=== PATIENT | female | born 1975 | race Caucasian/White ===

== ENCOUNTER 2016-12-01 18:51 | Emergency (ER) | payer OTHER ==
[~2016-12-01] VITALS: Ht 162.6 cm; Wt 72.7 kg
[~2016-12-01 18:51] MED LIST: NOMED
[2016-12-01 19:10] VITALS: BP 117/79; PULSE 75; RESP 16; O2SAT 98
[2016-12-01] MEDS ORDERED: Ondansetron 2 mg/mL 2 mL Inj IVPUSH ONE (19:40)
[2016-12-01] MEDS ORDERED: 0.9% Sodium Chloride 1,000 ML IV ONE (19:45)
[2016-12-01] MEDS ORDERED: Clindamycin Inj 900 MG in IV Premix 1 EACH IV ONE (19:45)
--- NOTE | 2016-12-01 19:47 | ED.REPORT ---
HPI-Dental/Mouth Prob Date of Service December 01, 2016 ED Provider: Doc,Ed MD History of Present Illness: 41-year-old female who had dental work done on Fridays presents today with increased cheek throat and ear pain. On Friday she had no pain. today, early this morning, she started having increased symptoms. No fever but she is acutely nauseous. She cannot open her mouth. Her right cheek is the worst. It does not hurt her teeth were removed. She had 1 upper and one lower molar on the right side removed. She is able to eat and drink but she is nauseous now Nursing Notes Stated Complaint: SWOLLEN FACE TOOTH EXTRACTION Chief Complaint: Dental Nursing Notes Reviewed: Yes Allergies: Coded Allergies: codeine (Verified Allergy, Severe, N/V, 11/16/09) Miscellaneous Medications No Historical Medication (No Historical Medication) Ea General Time Seen by MD: 19:30 Chief Complaint Jaw swelling, Mouth pain, Other Hx Obtained From: Patient Arrived By: Walk-in Onset Occurred: 5 - 8 hours ago Symptom Duration: Constant Location: : Buccal mucosa right: Gum mandible right: Temporomandibular jt R Severity: Current: Severe Severity: Maximum: Severe Recent Healthcare: Previous surgery Similar Sx Previous: No Past Medical History Past Medical History denies Review of Systems Basic Review of Systems Eyes: Vision NL, No discharge Cardiovascular: No chest pain, No dyspnea on exertion, No orthopnea, No parox noct dyspnea, No palpitations Skin: No bruising, No rash, No itch Neurologic: NL mental status, No weakness, No numbness Psychiatric: Normal thought content Constitutional: Reports: Fever, Denies: Chills, Fatigue Ears / Nose / Throat: Reports: Earache right, Mouth pain, Throat pain, Throat swelling, Denies: Ear drainage bilateral, Ear ringing bilateral, Hearing loss bilateral Respiratory: Denies: Dyspnea on exertion GI: Reports: Nausea, Denies: Abdominal pain Complete sys rev & neg: except as marked. Physical Exam Initial Vital Signs Vital Signs (First) Date Time Temp Pulse Resp B/P Pulse Ox O2 Delivery O2 Flow Rate FiO2 12/01/16 19:10 36.8 75 16 117/79 98 Room Air Initial VS: Reviewed, Vital signs normal General/Constitutional: Well-developed, Well-nourished Head / Eyes: Atraumatic, Normocephalic, PERRL Respiratory: Breath sounds normal, Clear to auscultation, No respiratory distress Cardiovascular: Regular rate & rhythm, Heart sounds normal, Intact distal pulses Abdomen / GI: Soft, Non-tender, No guarding, No rebound, No distention Skin: Warm, Dry, No cyanosis Neurologic: Alert, Oriented, Nonfocal Psychiatric: Mood/affect normal, Behavior normal, Normal thought content ENT: Atraumatic, Airway patent, Mucous membranes moist, No pooling of secretions, Tympanic membs NL, Ext aud canal NL, Mastoid area NL, Nose exam NL, No facial swelling, Gums/dentition NL swelling noted to R face. PT cannot open jaw more than a few mm. quarter size lump palpated in R cheek, very tender. Tender to R jaw, R mandible, R lymphnodes, Tender R maxillary sinus difficulty visualizing teeth removal sites but no obvious erythema/swelling along gums or buccal mucosa. Neck: Supple, No meningismus, Full range of motion, No adenopathy, No swelling , No masses tender anterior neck Right side General/Constitutional: Awake, Alert, Well appearing Distress / Hydration: Positive: Distress mild Head / Eyes: Normocephalic, PERRL Respiratory / Chest: Breath sounds NL, Breath sounds = bilat, No respiratory distress, No rales, No rhonchi, No wheezing, No stridor Cardiovascular: Heart rate NL, Regular rhythm, Heart sounds NL, No murmurs, Peripheral circulation NL Abdomen: Atraumatic, Soft, Non-tender Interpretation & Diagnostics Lab Results Interpretation Result Diagram: 12/01/16195112/01/161951 Test 12/01/16 19:52 White Blood Count 5.4th/mm3 (3.8-10.1) Red Blood Count 4.56mil/mm3 (3.90-5.20) Hemoglobin 14.1g/dL (12.0-15.6) Hematocrit 41.8% (35.0-46.0) Mean Corpuscular Volume 91.7fL (81-100) Mean Corpuscular Hemoglobin 30.9pg (27.0-35.0) Mean Corpuscular Hemoglobin Concent 33.7% (32.0-37.0) Red Cell Distribution Width 12.5% (12.3-15.4) Platelet Count 238bil/L (150-400) Neutrophils (%) (Auto) 52.9% (40-74) Lymphocytes (%) (Auto) 33.4% (14-46) Monocytes (%) (Auto) 8.8% (4-12) Eosinophils (%) (Auto) 4.1% (0-5) Basophils (%) (Auto) 0.4% (0-3) Sodium Level 139mEq/L (134-144) Potassium Level 3.8mEq/L (3.5-5.2) Chloride Level 104mEq/L (97-108) Carbon Dioxide Level 20mmol/L (18-29) Blood Urea Nitrogen 8mg/dL (6-24) Creatinine 0.63mg/dL (0.57-1.00) Estimat Glomerular Filtration Rate 149mL/min (>59) Glucose Level 89mg/dL (60-99) Calcium Level 9.4mg/dL (8.5-10.1) Total Bilirubin 0.6mg/dL (0.0-1.2) Aspartate Amino Transf (AST/SGOT) 51U/L (0-50) Alanine Aminotransferase (ALT/SGPT) 72U/L (0-32) Alkaline Phosphatase 51U/L (25-150) Total Protein 7.5g/dL (6.4-8.4) Albumin 4.3g/dL (3.4-5.0) Re-Eval/Medical Decision Med Decision/Clinical Course pt requsting pain meds, toradol not effective. dilaudid and morphine both make her itchy, asks for benadryl with it. [address] report [address] Wells Discharge & Departure Shift Change Sign-Out Laboratory Evaluation: Lab evaluation discussed Imaging Studies: Imaging discussed Response to Therapy: Improved Primary Impression: Dental abscess Disposition: Home Discharge Condition All VS Reviewed: Yes Condition: Stable Patient Instructions: Dental Abscess (ED) Additional Instructions: Take antibiotics as prescribed. Referrals: Mavis Vides V. (Vivien) (PCP) Mariah Dawkins December 01, 2016 19:47
[2016-12-01 20:08] LABS: BASOPHILS % (AUTO) 0.4 % (0-3); EOSINOPHILS % (AUTO) 4.1 % (0-5); MONOCYTES % (AUTO) 8.8 % (4-12); Mean Corpuscular Hemoglobin 30.9 pg (27.0-35.0); Mean Corpuscular Volume 91.7 fL (81-100); NEUTROPHILS % (AUTO) 52.9 % (40-74); Platelet Count 238 bil/L (150-400)
[2016-12-01] MEDS ORDERED: HYDROmorphone 1 mg/mL Inj IVPUSH ONE (20:45)
[2016-12-01] MEDS ORDERED: Dexamethasone Inj 20 MG in 0.9% Sodium Chloride-Pha MIX 50 ML IV ONE (21:30)
--- NOTE | 2016-12-01 22:13 | DRSVH ---
PROCEDURE: CT NECK SOFT TISSUES WITH CONTRAST ([id number]) INDICATIONS: dental infection, TECHNIQUE: After the administration of intravenous contrast, 3.0 mm axial sections acquired from the sella to th e aortic arch. Additional oblique axial 3.0 mm sections acquired through the pharynx. 3 mm thick co roscoe reformats were generated. For radiation dose reduction, the following was used: automated exp osure control. COMPARISON: None. FINDINGS: Image quality: There is extensive metallic streak artifact from patient's dental hardware.. Lymph nodes: No cervical lymphadenopathy by size criteria. Vessels: Visualized vasculature appears patent. Neck spaces: There is soft tissue fullness in the base of tongue and floor of mouth bilaterally with foci of soft tissue gas. There is enlargement of the tonsils bilaterally with concentric mucosal th ickening in the oropharynx which demonstrates moderate narrowing. The vocal cords, false vocal cords , pyriform sinuses, epiglottis, and vallecula appear within normal limits. Glands: The parotid and submandibular glands appear normal. Thyroid gland demonstrates no discrete nodules. Miscellaneous: Visualized brain and orbits appear normal. Lung apices appear clear. Superficial so ft tissues appear normal. Bones: There is an intraosseous abscess in the right maxilla at the root of the right 2nd molar with associated bony erosion. There is suggestion of abscess extension into the adjacent soft tissues, m easuring up to approximately 1.6 x 1.0 cm in aggregate dimension. The visualized sinuses demonstrate mild mucosal thickening in the maxillary sinuses inferiorly. IMPRESSION: 1. Intraosseous abscess in the right maxilla centered at the root of the 2nd molar with associated b yves erosion. 2. Soft tissue edema also demonstrated at the base of tongue and floor of mouth with foci of soft ti ssue gas which may represent sequelae of a gas-forming organism infection or gas within small veins s econdary to sequelae of injection. 3. Enlargement of the tonsils and mucosal thickening in the oropharynx with associated moderate narr owing. Dictated by: Cali Foster M.D. on 12/01/2016 at 21:57 Approved by: Cali Foster M.D. on 12/01/2016 at 22:06
[2016-12-01 23:29] VITALS: BP 91/54; PULSE 59; RESP 16; O2SAT 100
[2016-12-02] MEDS ORDERED: HYDROmorphone 1 mg/mL Inj IVPUSH ONE (00:15)
[2016-12-02 00:31] VITALS: BP 102/60; PULSE 84; RESP 16; O2SAT 100
== END 2016-12-02 00:32 | disposition home or self-care (01) ==
LOC: SED 18:51
DX: K04.7 Periapical abscess without sinus (principal); Z98.818 Other dental procedure status; Z88.5 Allergy status to narcotic agent
CPT/HCPCS: 36415; 70491; 80053; 81025; 85025; 96361; 96365; 96372; 96375; 96376; 99285; J1100; J1170; J1200; J1885; J2405; J7030; Q9967